=== PATIENT | female | born 1950 | race Caucasian/White ===

== ENCOUNTER 2023-04-21 09:32 | Observation (INO) | payer MEDICARE, OTHER ==
[~2023-04-21 09:32] MED LIST: Famotidine 20 MG/2 ML SDV IVPUSH SCH; Ropivacaine 49.25 ML, Ketorolac 30 MG, EPINEPHrine 0.5 MG, cloNIDine 80 MCG in Sodium C... INJECT SCH; Scopolamine 1.5 MG Transdermal Patch TRDERM SCH; Tranexamic Acid 1,000 MG in Sodium Chloride 0.9% 100 ML IV SCH; ceFAZolin 2 GM in Sodium Chloride 0.9% 50 ML IV ONE
[2023-04-21] MEDS ORDERED: Famotidine 20 MG/2 ML SDV ONE (09:47)
[2023-04-21] MEDS ORDERED: Albuterol 0.083% 2.5 MG/3 ML Neb Soln NEB PRN (09:57)
[2023-04-21] MEDS ORDERED: fentaNYL 50 MCG/ML SDV IVPUSH PRN (09:57)
[2023-04-21] MEDS ORDERED: Morphine 2 MG/ML SYRINGE IVPUSH PRN (09:57)
[2023-04-21] MEDS ORDERED: Naloxone 0.4 MG/ML SDV IVPUSH PRN (09:57)
[2023-04-21] MEDS ORDERED: droPERidol 5 MG/2 ML SDV IVPUSH PRN (09:57)
[2023-04-21] MEDS ORDERED: HYDROmorphone 1 MG/ML Syringe IVPUSH PRN ×2 (09:57→14:59)
[2023-04-21] MEDS ORDERED: Ondansetron 4 MG/2 ML SDV IVPUSH PRN ×2 (09:57→14:59)
[2023-04-21] MEDS ORDERED: Metoclopramide 10 MG/2 ML SDV IVPUSH PRN (09:57)
[2023-04-21] MEDS: Lactated Ringers 1,000 ML IV SCH ×2 (10:00→17:04)
[2023-04-21] MEDS ORDERED: fentaNYL 100 MCG/2 ML SDV ONE (10:38)
[2023-04-21] MEDS ORDERED: Rocuronium Bromide 50 MG/5 ML Syringe ONE ×2 (10:38→13:19)
[2023-04-21] MEDS ORDERED: Lidocaine 2% 5 ML SDV ONE (10:38)
[2023-04-21] MEDS ORDERED: Sugammadex Sodium 200 MG/2 ML VIAL ONE (10:38)
[2023-04-21] MEDS ORDERED: Propofol 200 MG/20 ML SDV ONE (10:38)
[2023-04-21] MEDS ORDERED: Ketorolac 30 MG/ML SDV ONE (10:38)
[2023-04-21] MEDS ORDERED: Ondansetron 4 MG/2 ML SDV ONE (10:38)
[2023-04-21] MEDS ORDERED: Dexamethasone 4 MG/ML 5 ML MDV ONE (10:38)
[2023-04-21] MEDS ORDERED: propofoL 100 ML ONE (10:56)
[2023-04-21] MEDS ORDERED: Morphine PF 10 MG/10 ML SDV ONE (11:16)
[2023-04-21] MEDS ORDERED: ceFAZolin 2 GM Vial ONE (12:52)
[2023-04-21] MEDS ORDERED: Tranexamic Acid 1,000 MG/10 ML Vial ONE (13:01)
[2023-04-21] MEDS ORDERED: Magnesium Sulfate (4.06 MEQ/ML) 5 GM/10 ML SDV ONE (13:45)
[2023-04-21] MEDS ORDERED: Aluminum Hydroxide/Magnesium Hydroxide/Simethicone XS Susp 30 ML Cup PO PRN (14:59)
[2023-04-21] MEDS ORDERED: Sodium Chloride 0.9% 2.5 ML Syringe FLUSH PRN (14:59)
[2023-04-21] MEDS ORDERED: diphenhydrAMINE 25 MG Cap PO PRN (14:59)
[2023-04-21] MEDS ORDERED: Sodium Chloride 0.9% 10 ML Syringe FLUSH PRN (14:59)
[2023-04-21] MEDS ORDERED: traMADol 50 MG Tab PO PRN (14:59)
[2023-04-21] MEDS ORDERED: Phenylephrine HCl 0.5 MG/5 ML AMP IVPUSH ONE (16:19)
[2023-04-21] MEDS: Ketorolac 30 MG/ML SDV IVPUSH SCH ×2 (16:25→20:31)
[2023-04-21] MEDS: Acetaminophen 325 MG Tab PO SCH ×2 (17:54→20:32)
[2023-04-21] MEDS ORDERED: Scopolamine 1.5 MG Transdermal Patch TRDERM PRN (20:19)
[2023-04-21] MEDS: ceFAZolin 2 GM in Sodium Chloride 0.9% 50 ML IV SCH (20:29)
[2023-04-21] MEDS: Docusate Sodium 100 MG Cap PO SCH (20:30)
[2023-04-21] MEDS ORDERED: Promethazine 25 MG/ML SDV IM PRN (22:18)
[2023-04-22] MEDS: Acetaminophen 325 MG Tab PO SCH ×6 (00:52→20:48)
[2023-04-22] MEDS: Ketorolac 30 MG/ML SDV IVPUSH SCH (03:52)
[2023-04-22] MEDS: ceFAZolin 2 GM in Sodium Chloride 0.9% 50 ML IV SCH (03:59)
[2023-04-22 06:47] LABS: HEMATOCRIT 33.7 % (36.0-46.0); HEMOGLOBIN 11.1 g/dL (12.0-16.0)
[2023-04-22] MEDS: oxyCODONE 5 MG Tab PO PRN ×4 (07:55→23:05)
[2023-04-22] MEDS: Polyethylene Glycol 3350 Powder 17 GM Packet PO SCH (09:24)
[2023-04-22] MEDS: Famotidine 20 MG Tab PO SCH (09:27)
[2023-04-22] MEDS: Docusate Sodium 100 MG Cap PO SCH ×2 (09:27→20:49)
[2023-04-22] MEDS: Ibuprofen 600 MG Tab PO SCH ×2 (09:28→17:19)
[2023-04-22] MEDS: Aspirin 325 MG Tab PO SCH (09:29)
[2023-04-23] MEDS: Acetaminophen 325 MG Tab PO SCH ×3 (01:08→08:25)
[2023-04-23] MEDS: Ibuprofen 600 MG Tab PO SCH ×2 (01:09→08:24)
[2023-04-23] MEDS: oxyCODONE 5 MG Tab PO PRN ×2 (03:59→08:00)
[2023-04-23] MEDS: Famotidine 20 MG Tab PO SCH (08:23)
[2023-04-23] MEDS: Polyethylene Glycol 3350 Powder 17 GM Packet PO SCH (08:25)
[2023-04-23] MEDS: Docusate Sodium 100 MG Cap PO SCH (08:25)
[2023-04-23] MEDS: Aspirin 325 MG Tab PO SCH (08:26)
== END 2023-04-23 11:20 | disposition home or self-care (01) ==
LOC: MW.SDS 09:32 → MW.MS 16:18 → UNDODISOB 04-22 18:10
PROVIDERS: ADMIT Orthopaedic Surgery; ATTEND Orthopaedic Surgery
DX: M16.11 Unilateral primary osteoarthritis, right hip (principal); M87.851 Other osteonecrosis, right femur; R33.9 Retention of urine, unspecified; R11.0 Nausea; E78.5 Hyperlipidemia, unspecified; K21.9 Gastro-esophageal reflux disease without esophagitis; N32.81 Overactive bladder; Z79.82 Long term (current) use of aspirin; Z79.899 Other long term (current) drug therapy; Z88.2 Allergy status to sulfonamides
CPT/HCPCS: 27130; 36415; 51798; 73501; 83735; 85014; 85018; 86850; 86900; 86901; 97110; 97163; 97530; A9270; C1713; C1776; J0171; J0690; J0735; J1100; J1885; J2274; J2370; J2405; J2550; J2704; J2795; J3010; J3475; J3490; J7120; 01214; 99100

== ENCOUNTER 2023-10-06 13:46 | Emergency (ER) | payer OTHER, MEDICARE ==
[2023-10-06] MEDS ORDERED: Acetaminophen 325 MG Tab PO ONE (15:07)
[2023-10-06] MEDS ORDERED: Acetaminophen 500 MG Tab PO ONE ×2 (15:10)
== END 2023-10-06 17:05 | disposition home or self-care (01) ==
LOC: MW.ED 13:46
DX: S06.0X0A Concussion without loss of consciousness, initial encounter (principal); S00.83XA Contusion of other part of head, initial encounter; M19.90 Unspecified osteoarthritis, unspecified site; Z79.82 Long term (current) use of aspirin; Z79.899 Other long term (current) drug therapy; Z88.2 Allergy status to sulfonamides; V89.2XXA Person injured in unspecified motor-vehicle accident, traffic, initial encounter; Y92.410 Unspecified street and highway as the place of occurrence of the external cause
CPT/HCPCS: 70450; 71045; 72125; 99284; A9270; 99283

== ENCOUNTER 2025-02-20 09:01 | Day surgery (SDC) | payer MEDICARE, OTHER ==
[~2025-02-20 09:01] MED LIST changes: -Famotidine 20 MG/2 ML SDV IVPUSH SCH; -Ropivacaine 49.25 ML, Ketorolac 30 MG, EPINEPHrine 0.5 MG, cloNIDine 80 MCG in Sodium C... INJECT SCH; -Scopolamine 1.5 MG Transdermal Patch TRDERM SCH; +Sodium Chloride 0.9% 10 ML Syringe FLUSH PRN; +Sodium Chloride 0.9% 2.5 ML Syringe FLUSH PRN; +Sodium Chloride 0.9% 20 ML SDV IV PRN; -Tranexamic Acid 1,000 MG in Sodium Chloride 0.9% 100 ML IV SCH; -ceFAZolin 2 GM in Sodium Chloride 0.9% 50 ML IV ONE
[2025-02-20] MEDS: Lactated Ringers 1,000 ML IV SCH (10:10)
[2025-02-20] MEDS ORDERED: Propofol 200 MG/20 ML SDV ONE (10:38)
[2025-02-20] MEDS ORDERED: Lidocaine 2% 5 ML SDV ONE (10:38)
== END 2025-02-20 12:50 | disposition home or self-care (01) ==
LOC: MW.SDS 09:01
PROVIDERS: ATTEND Surgery
DX: Z12.11 Encounter for screening for malignant neoplasm of colon (principal); D12.5 Benign neoplasm of sigmoid colon; R19.5 Other fecal abnormalities; Z88.2 Allergy status to sulfonamides; Z79.82 Long term (current) use of aspirin; Z79.899 Other long term (current) drug therapy
CPT/HCPCS: 45380; 88305; J2003; J2704; J7120; 00811; 99100